=== PATIENT | male | born 1975 | race Caucasian/White ===

== ENCOUNTER 2017-09-27 16:07 | Emergency (ER) | payer OTHER ==
[~2017-09-27 16:07] MED LIST: AMLO5TAB2 PO; GLIP5TAB8 PO; LISI-519 PO; METF500T PO; PROT40TA PO
[2017-09-27 16:08] VITALS: BP 134/79; PULSE 86; RESP 14; TEMP 98.2; O2SAT 97
[2017-09-27] MEDS ORDERED: ASPI-183 PO (16:27)
--- NOTE | 2017-09-27 17:12 | PD ---
HPI Chief Complaint: Pain: Acute or Chronic Time Seen by Provider: 17:00 Travel History International Travel<30 days: No Contact w/Intl Traveler<30days: No Traveled to known affect area: No History of Present Illness HPI 42-year-old male here for evaluation of right lower extremity DVT. The patient states that he recently drove down from [place] on 09/23/17, 4 days ago, and immediately afterwards began noticing pain in his right calf. He had an outpatient right lower extremity venous duplex performed today that shows occlusive thrombus in the right peroneal and posterior tibial veins. Pain is moderate, constant, worse with palpation, better with rest. He denies chest pain or dyspnea. No history of DVT or PE. No history of cancer. PFSH Past Medical History High Cholesterol: Yes Diabetes: Yes Patient Takes Glucophage: No Hypertension: Yes Social History Alcohol Use: No Tobacco Use: Yes (2ppd) Substance Use: No Allergies-Medications (Allergen,Severity, Reaction): Coded Allergies: No Known Allergies (Unverified Adverse Reaction, Unknown, 09/27/17) Reported Meds & Prescriptions Reported Meds & Active Scripts Active Reported Aspirin 325 Mg Tab 325 Mg PO DAILY Review of Systems Except as stated in HPI: all other systems reviewed are Neg Physical Exam Narrative GENERAL: Well-developed, well-nourished, comfortable, no apparent distress. SKIN: Focused skin assessment warm/dry. HEAD: Atraumatic. Normocephalic. EYES: Pupils equal and round. No scleral icterus. No injection or drainage. ENT: Mucous membranes pink and moist. NECK: Trachea midline. No JVD. CARDIOVASCULAR: Regular rate and rhythm. Bilateral dorsalis pedis pulses are brisk and equal. RESPIRATORY: No accessory muscle use. Clear to auscultation. Breath sounds equal bilaterally. GASTROINTESTINAL: Abdomen soft, non-tender, nondistended. MUSCULOSKELETAL: No obvious deformities. No clubbing. No cyanosis. Mild right calf edema when compared to the left with moderate posterior leg/calf tenderness. There are no signs of phlegmasia cerulea dolens. No skin color changes. NEUROLOGICAL: Awake and alert. No obvious cranial nerve deficits. Motor grossly within normal limits. Normal speech. PSYCHIATRIC: Appropriate mood and affect; insight and judgment normal. Data Data Last Documented VS Vital Signs Date Time Temp Pulse Resp B/P (MAP) Pulse Ox O2 Delivery O2 Flow Rate FiO2 11/6/17 17:41 98 Room Air 09/27/17 16:08 98.2 86 14 Orders Orders Basic Metabolic Panel (Bmp) (09/27/17 17:07) Complete Blood Count With Diff (09/27/17 17:07) Prothrombin Time / Inr (Pt) (09/27/17 17:07) Act Partial Throm Time (Ptt) (09/27/17 17:07) Iv Access Insert/Monitor (09/27/17 17:07) Ecg Monitoring (09/27/17 17:07) Oximetry (09/27/17 17:07) Sodium Chloride 0.9% Flush (Ns Flush) (09/27/17 17:15) Rivaroxaban (Xarelto) (09/27/17 18:15) Labs Laboratory Tests Test 09/27/17 15:15 White Blood Count 12.3 TH/MM3 Red Blood Count 5.04 MIL/MM3 Hemoglobin 15.0 GM/DL Hematocrit 45.0 % Mean Corpuscular Volume 89.3 FL Mean Corpuscular Hemoglobin 29.7 PG Mean Corpuscular Hemoglobin Concent 33.2 % Red Cell Distribution Width 14.3 % Platelet Count 187 TH/MM3 Mean Platelet Volume 10.2 FL Neutrophils (%) (Auto) 65.5 % Lymphocytes (%) (Auto) 24.5 % Monocytes (%) (Auto) 8.1 % Eosinophils (%) (Auto) 1.4 % Basophils (%) (Auto) 0.5 % Neutrophils # (Auto) 8.0 TH/MM3 Lymphocytes # (Auto) 3.0 TH/MM3 Monocytes # (Auto) 1.0 TH/MM3 Eosinophils # (Auto) 0.2 TH/MM3 Basophils # (Auto) 0.1 TH/MM3 CBC Comment DIFF FINAL Differential Comment Prothrombin Time 10.9 SEC Prothromb Time International Ratio 1.0 RATIO Activated Partial Thromboplast Time 26.5 SEC Blood Urea Nitrogen 11 MG/DL Creatinine 0.91 MG/DL Random Glucose 82 MG/DL Calcium Level 9.2 MG/DL Sodium Level 138 MEQ/L Potassium Level 4.3 MEQ/L Chloride Level 104 MEQ/L Carbon Dioxide Level 28.8 MEQ/L Anion Gap 5 MEQ/L Estimat Glomerular Filtration Rate 91 ML/MIN MDM Medical Decision Making Medical Screen Exam Complete: Yes Emergency Medical Condition: Yes Differential Diagnosis DVT Narrative Course Vital signs show heart rate 86, blood pressure 134/79, pulse ox 97% on room air , oral temp of 98.2 from high. CBC: WBC 12.3, hemoglobin 15, hematocrit 45, platelets 187. BMP is unremarkable. Outpatient right lower extremity venous duplex was reviewed by me and the reading shows occlusive peroneal and posterior tibial vein thrombosis. I discussed this with on-call radiologist Dr. Stewart to see the patient is a candidate for, lysis or thrombectomy. Because the clot is below his knee, there is no significant edema on exam, and because the clot has likely been there for 4 days, he is not a good candidate for thrombo-lysis or thrombectomy. Patient will be started on Xarelto. I discussed the risks and benefits of this medication with the patient and he is amenable to this plan. He is stable for discharge home with outpatient follow-up with his primary care physician this week. He was informed on when to return to the emergency department. He verbalizes understanding and agreement with plan. Diagnosis Primary Impression: DVT (deep venous thrombosis) Qualified Codes: I82.441 - Acute embolism and thrombosis of right tibial vein Referrals: Primary Care Physician 3 days Additional Instructions: Follow-up with your primary care physician this week. Take Xarelto as prescribed. Return to the emergency department for worsening symptoms or any other concerns. Scripts Hydrocodone-Acetaminophen (Lortab) 5-325 Mg Tab 1 TAB PO Q6H Y for PAIN, #15 TAB 0 Refills Prov: Jameel Curry MD 09/27/17 Rivaroxaban (Xarelto) 20 Mg Tab 20 MG PO DAILY for Blood Clot Prevention for 30 Days, #30 TAB 0 Refills Prov: Jameel Curry MD 09/27/17 Rivaroxaban (Xarelto) 15 Mg Tab 15 MG PO Q12HR for Blood Clot Prevention for 21 Days, TAB 0 Refills Prov: Jameel Curry MD 09/27/17 Disposition: 01 DISCHARGE HOME Condition: Stable Jameel Curry MD Sep 27, 2017 17:12
[2017-09-27] MEDS ORDERED: SODIUM CHLORIDE 0.9% FLUSH 10 ML FLUSH IV FLUSH PRN (17:15)
[2017-09-27 17:41] VITALS: O2SAT 98
[2017-09-27 17:42] LABS: BASOPHIL # 0.1 TH/MM3 (0-0.2); BASOPHIL % 0.5 % (0.0-2.0); EOSINOPHIL # 0.2 TH/MM3 (0-0.4); EOSINOPHIL % 1.4 % (0.0-4.0); HEMO FLAGS DIFF FINAL; LYMPH % 24.5 % (9.0-44.0); MEAN CELL VOLUME 89.3 FL (80.0-100.0); MEAN CORPUSCULAR HEMOGLOBIN 29.7 PG (27.0-34.0); MEAN CORPUSCULAR HGB CONC 33.2 % (32.0-36.0); MONO % 8.1 % (0.0-8.0); NEUT % 65.5 % (16.0-70.0); PLATELET COUNT 187 TH/MM3 (150-450); RED BLOOD COUNT 5.04 MIL/MM3 (4.50-5.90); RED CELL DISTRIBUTION WIDTH 14.3 % (11.6-17.2); WHITE BLOOD COUNT 12.3 TH/MM3 (4.0-11.0)
[2017-09-27 18:03] LABS: BICARBONATE 28.8 MEQ/L (21.0-32.0); POTASSIUM 4.3 MEQ/L (3.5-5.1)
[2017-09-27 18:04] LABS: APTT (PATIENT) 26.5 SEC (24.3-30.1); PROTHROMBIN TIME - PATIENT 10.9 SEC (9.8-11.6)
[2017-09-27] MEDS ORDERED: XARE20TA PO (18:10)
[2017-09-27] MEDS ORDERED: XARE15TA PO (18:10)
[2017-09-27] MEDS ORDERED: HYDR-3533 PO (18:10)
[2017-09-27] MEDS ORDERED: RIVAROXABAN 15 MG TAB PO ONE (18:15)
== END 2017-09-27 18:24 | disposition home or self-care (01) ==
LOC: NEPD 16:07
DX: I82.441 Acute embolism and thrombosis of right tibial vein (principal); F17.200 Nicotine dependence, unspecified, uncomplicated
CPT/HCPCS: 80048; 85025; 85610; 85730; 99284